=== PATIENT | male | born 1965 | race Caucasian/White ===

== ENCOUNTER → 2017-05-06 | Outpatient (CLI) | payer OTHER ==
[~2017-05-06] MED LIST: GADAVIST IV PRN
--- NOTE | 2017-05-06 09:56 | DIAGNOSTIC IMAGING REPORT ---
BRAIN COMBO CLINICAL HISTORY: METASTATIC MELANOMA none COMPARISON STUDY: No previous studies for comparison. TECHNIQUE: Utilizing a 1.5 Nirali magnet and dedicated coil, multiplanar, multiecho imaging of the brain was performed pre and postcontrast administration. IV administration of 9.5 mL of Gadavist contrast was uneventful. FINDINGS: Signal characteristics are unremarkable throughout the cerebellar as well as cerebral hemispheres. The ventricular system is midline. Sella and parasellar regions are unremarkable. No abnormal postcontrast enhancement. Internal auditory canals are symmetric. IMPRESSION: Normal study. The above report was generated using voice recognition software. It may contain grammatical, syntax or spelling errors. Electronically signed by: Med Sy M.D. 05/06/2017 9:55 AM Dictated Date/Time: 05/06/2017 9:49 AM
== END | disposition home or self-care (01) ==
LOC: C.MRIBC 08:08
PROVIDERS: ATTEND Surgery Surgical Oncology
DX: C43.9 Malignant melanoma of skin, unspecified (principal)

== ENCOUNTER → 2017-05-17 | Outpatient (CLI) | payer OTHER ==
--- NOTE | 2017-05-17 13:20 | DIAGNOSTIC IMAGING REPORT ---
PET/CT HISTORY: C43.9 MALIGNANT MELANOMA OF THE SKIN TECHNIQUE: PET/CT was performed from the base of the skull through the pelvis following the intravenous administration of 14.3 mCi of F18-FDG. Non-contrast CT imaging was performed over the same range without breath-hold for attenuation correction of PET images and anatomic correlation, but not for primary interpretation as it is not of standard diagnostic quality. CT DOSE: COMPARISON: FINDINGS: HEAD AND NECK: Symmetric FDG uptake within the brain. Cervical lymph nodes measure subcentimeter in short axis diameter and demonstrate minimal FDG uptake with SUV max is less than 2. Dominant lymph node on the left measures 7 mm in short axis diameter with an SUV max of 1.8. CHEST: A 4 mm nodule within the right middle lobe in . This is too small to characterize. Otherwise, no suspicious or FDG avid pole nodules identified. No pleural effusions. No pneumothorax. Subcentimeter right paratracheal lymph node also demonstrates an SUV max of 1.8. This lymph node measures 5 mm in short axis diameter. No FDG avid or enlarged hilar or axillary lymph nodes. ABDOMEN/PELVIS: Below the diaphragm, tracer is distributed physiologically in the gastrointestinal and genitourinary tracts. No FDG avid hepatic or splenic lesions. Normal adrenal glands. Bilateral peripelvic renal cysts. Colonic diverticulosis. Within the subcutaneous fat of the right lower quadrant there is a 12.6 x 3.7 cm subcutaneous fluid collection. This demonstrates overlying skin thickening and mild fast rating within the anterior subcutaneous fat. The fasting within the subcutaneous fat demonstrates mild FDG uptake with an SUV max of 2.6. There is a second smaller fluid collection within the right inguinal subcutaneous fat which measures 3 cm with surrounding soft tissue/fat stranding. This surrounding soft tissue thickening/fat stranding also demonstrates mild FDG uptake with an SUV max of 2.6. No FDG avid or enlarged inguinal lymph nodes. There or single lateral external iliac lymph node which measures 8 mm in short axis diameter. These demonstrate minimal FDG uptake with an SUV max of 1.7. MUSCULOSKELETAL/lower extremities: There is no FDG-avid or destructive bone lesion. IMPRESSION: 1. There are few scattered lymph node seen within the neck, chest, and pelvis which demonstrate minimal FDG uptake. These all measure subcentimeter in short axis diameter and therefore unlikely to represent metastatic disease at this time. However, follow is recommended to ensure stability/resolution of these findings. 2. Right lower quadrant and right inguinal subcutaneous fluid collections with mild surrounding soft tissue thickening/fat stranding. The surrounding soft tissue thickening/fat stranding demonstrates mild FDG uptake. Therefore, these findings favor postoperative seromas with surrounding postoperative change at this time. However, a follow-up is recommended to ensure stability/resolution of these findings and to exclude the less likely possibility of residual disease. 3. A 4 indeterminate pulmonary nodule within the right middle lobe which is likely benign. Electronically signed by: Norman Weinstein M.D. 05/17/2017 1:18 PM Dictated Date/Time: 05/17/2017 1:00 PM
== END | disposition home or self-care (01) ==
LOC: C.PET 06:46
PROVIDERS: ATTEND Surgery Surgical Oncology
DX: C43.9 Malignant melanoma of skin, unspecified (principal)

== ENCOUNTER 2017-06-17 08:32 | Inpatient (IN) | payer OTHER ==
[~2017-06-17] VITALS: Ht 177.8 cm; Wt 102.1 kg
[2017-06-17] VITALS (7 sets, daily range): BP systolic 128–170; BP diastolic 81–88; PULSE 69–96; TEMP 36.9–37.7; O2SAT 95–98; Ht 177.8 cm; Wt 102.1 kg
[2017-06-17] MEDS ORDERED: VANCOMYCIN CONSULT ACTIVE PRN ×2 (09:15→12:00)
[2017-06-17] MEDS ORDERED: CEFTRIAXONE SOD INJ 1 GM ADDVIAL IV STA (09:15)
[2017-06-17] MEDS ORDERED: SODIUM CHLORIDE 0.9% 1000ML 1,000 ML IV STA (09:15)
[2017-06-17] MEDS ORDERED: VANCOMYCIN INJ 2,500 MG in SODIUM CHLORIDE 0.9% 500ML 500 ML IV STA (09:15)
[2017-06-17] MEDS ORDERED: SODIUM CHLORIDE 0.9% 500ML 500 ML IV STA (09:15)
--- NOTE | 2017-06-17 09:19 | EMERGENCY ROOM VISIT NOTE ---
History Report prepared by Beronica: Lola Contreras Under the Supervision of: Dr. Adina Melton M.D. First contact with patient: 08:53 Chief Complaint: SWELLING TO EXTREMITY Stated Complaint: SWELLOEN LEG, RED, WARM, PUS DRAINGING OUT OF TUBE History of Present Illness The patient is a 51 year old male who presents to the Emergency Room with complaints of sudden swelling to his right leg beginning yesterday. The patient reports that he has melanoma and had surgeries on April 21 and June 07 to take out lymph nodes and that he had a tube in his leg placed. He reports that last week the tube stopped draining, but states that now the tube is draining again and that the drainage has pus. He also reports that his right leg has been red and swollen. He reports having a low grade fever last night. The patient reports that he has also been coughing, but that he has been on a while. He states that he is not currently on antibiotics and that he has never been on antibiotics since the surgery. The patient states that he is unsure if he needs chemotherapy yet. Source of History: patient Onset: yesterday Position: leg (right) Quality: other (swelling ) Timing: other (sudden ) Associated Symptoms: + fevers, + cough Review of Systems See HPI for pertinent positives & negatives. A total of 10 systems reviewed and were otherwise negative. Past Medical & Surgical Medical Problems: (1) Leukocytosis (2) Post op infection (3) Sepsis (4) Wound abscess Family History No pertinent family history stated. Social History Smoking Status: Never Smoker Marital Status: Housing Status: lives with family Occupation Status: employed Current/Historical Medications Scheduled Acetaminophen Tab (Tylenol), 650 MG PO UD Amlodipine (Norvasc), 10 MG PO HS Atorvastatin (Lipitor), 40 MG PO HS Enoxaparin (Lovenox), 40 MG SQ DAILY Nystatin (Nystatin Suspension), 5 ML PO QID Ranitidine Hcl (Zantac), 150 MG PO BID Allergies Coded Allergies: BEE STING (Unverified Allergy, Intermediate, SHORTNESS OF BREATH/SWELL, ) Oxycodone (Unverified Allergy, Mild, DOSEN'T TOLERATE, 06/17/17) Physical Exam Vital Signs Date Time Temp Pulse Resp B/P (MAP) Pulse Ox O2 Delivery O2 Flow Rate FiO2 06/17/17 11:50 37.4 87 16 153/102 95 Room Air 06/17/17 11:00 94 20 165/93 96 Room Air 06/17/17 09:47 104 06/17/17 08:37 37.2 122 20 154/98 97 Room Air Physical Exam Vital signs reviewed. General: Well-appearing male, some discomfort. HEENT: No scleral icterus, PERRLA, neck supple. Atraumatic. Cardiovascular: Regular rate and rhythm, no extra sounds. Pulmonary: Clear to auscultation bilaterally, normal work of breathing. Abdomen: Soft, nontender, nondistended, positive bowel sounds. Musculoskeletal: Atraumatic, no peripheral edema. See skin changes below. Neurologic: Patient awake alert and oriented x 3, full strength in all 4 extremities. Cranial nerves 2 through 12 grossly intact. Skin: Warm, dry. Drainage around ENRIQUE in L inguinal region cultured. Large well healing incision to right inguinal region with a ENRIQUE drain. Surrounding erythema to the incision. Purulent discharge at ENRIQUE site. Some swelling noted to the right thigh without significant edema distally. Genitals are not affected. Medical Decision & Procedures ER Provider Diagnostic Interpretation: Radiology results as stated below per my review and radiologist interpretation: ULTRASOUND R VENOUS DOPP LOWER EXT UNILAT CLINICAL HISTORY: Right leg swelling status post melanoma resection. COMPARISON STUDY: No previous studies for comparison. FINDINGS: The study was limited from a technical standpoint. The patient has a right thigh incision with an overlying drain. Compression of the common femoral superficial femoral vein could not be performed. There was normal color-flow within the common femoral superficial femoral veins. There is no popliteal vein thrombus. There is normal color-flow the proximal trifurcation veins of the calf. IMPRESSION: Technically limited study. No evidence of right lower extremity DVT. Electronically signed by: Rakesh Palacios M.D. 06/17/2017 10:34 AM Dictated Date/Time: 06/17/2017 10:30 AM RIGHT THIGH ULTRASONOGRAPHY CLINICAL HISTORY: History of melanoma resection. Right thigh swelling. Possible abscess. COMPARISON STUDY: No previous studies for comparison. FINDINGS: There is a right thigh incision with a surgical drain present. There is superficial soft tissue edema. Adjacent to the tube incision is a complex fluid collection which is avascular. This measures 49 x 47 x 20 mm. This could represent a postsurgical hematoma, abscess, or seroma. IMPRESSION: 49 x 47 x 20 mm mildly complex fluid collection, located in deep to the incision and adjacent to the surgical drain. It is not possible ultrasonographically to determine whether this is infected. Electronically signed by: Rakesh Palacios M.D. 06/17/2017 10:37 AM Dictated Date/Time: 06/17/2017 10:34 AM Laboratory Results Test 06/17/17 08:55 06/17/17 09:05 Prothrombin Time 9.9 SECONDS (9.0-12.0) Prothromb Time International Ratio 0.9 (0.9-1.1) Activated Partial Thromboplast Time 29.8 SECONDS (21.0-31.0) Partial Thromboplastin Ratio 1.1 Bedside Lactic Acid Venous 2.27 mmol/L (0.90-1.70) Laboratory results per my review. Medications Administered Medications (Trade) Dose Ordered Sig/Sage Route Start Time Stop Time Status Last Admin Dose Admin Sodium Chloride 500 ml @ 999 mls/hr Q31M STAT IV 06/17/17 09:15 06/17/17 09:45 DC 06/17/17 09:15 999 MLS/HR Sodium Chloride 1,000 ml @ 125 mls/hr Q8H STAT IV 06/17/17 09:15 06/17/17 13:17 DC 06/17/17 09:44 125 MLS/HR Vancomycin HCl 2500 mg/Sodium Chloride 550 ml @ 200 mls/hr ONE STAT IV 06/17/17 09:15 06/17/17 11:59 DC 06/17/17 09:43 200 MLS/HR Ceftriaxone Sodium (Rocephin Inj) 1 gm NOW STAT IV 06/17/17 09:15 06/17/17 09:20 DC 06/17/17 09:41 1 GM ECG Indication: weakness Rate (beats per minute): 109 Rhythm: sinus tachycardia Findings: other (nonspecific ST-change, poor baseline quality for interpretation) Change: Patient's Electrocardiogram interpreted by nd ED Course 09: Past medical records reviewed. The patient was evaluated in room B9. A complete history and physical examination was performed. 0915: Ordered Rocephin Inj 1 gm UV, Vancomycin HCl 2,500 mg/Sodium Chloride 550 ml @ 200 mls/hr IV, Sodium Chloride 1,000 ml @ 125 mls/hr IV, Sodium Chloride 500 ml @ 999 mls/hr IV. 1115: I reviewed the patient's case with Dr. Ramos. He will evaluate the patient for further management. 1125: Upon reevaluation, the patient is resting comfortably. I discussed laboratory and radiographic results with him. He verbalized agreement of the treatment plan. The patient will be evaluated for further management and care. Medical Decision Differential diagnosis: Etiologies such as cellulitis, abscess, MRSA infection, DVT, necrotizing fasciitis, dermatitis, drug eruption, post operative wound infection, as well as others were entertained. This pt was evaluated and appeared to be in no distress. He is noted to be tachycardic and hypertensive. He is afebrile, but has taken antipyretics. IV access was obtained and lab work was drawn. Pt was cultured both at the drainage site and blood. IV vancomycin and ceftriaxone were initiated. US RLE was performed, no DVT but there is a notable fluid collection. WBC is 19. [place] was [place] [facility] [place]. She has requested a drain be placed in the wound. Pt was d/w Dr Soto in [facility] who agrees to evaluate. Pt was happy with plan to stay at [facility] for now as he did not want transfer. He will be evaluted by [facility] hospitalist service for further management. Medication Reconcilliation Current Medication List: was personally reviewed by me Blood Pressure Screening Patient's blood pressure: Elevated blood pressure will be monitored by hospitalist Consults Time Called: 1030 Consulting Physician: Dr. Ramos- IdYashira WhitleyLacon Returned Call: [phone] I reviewed the patient's case with Dr. Ramos. He will evaluate the patient for further management. Impression Primary Impression: Cellulitis of right lower extremity Additional Impressions: Fluid collection at surgical site SIRS (systemic inflammatory response syndrome) Scribe Attestation The scribe's documentation has been prepared under my direction and personally reviewed by me in its entirety. I confirm that the note above accurately reflects all work, treatment, procedures, and medical decision making performed by me. Departure Information Dispostion Being Evaluated By Hospitalist Referrals Jerome Hurley D.O. (PCP) Patient Instructions My [facility] Problem Qualifiers
[2017-06-17 09:49] LABS: BASO % 0.1 %; BASO ABS # 0.01 K/uL (0-0.2); EOS % 0.1 %; EOS ABS # 0.01 K/uL (0-0.5); HEMATOCRIT 41.9 % (42-52); HEMOGLOBIN 14.9 g/dL (14.0-18.0); IG# 0.08 K/uL (0.00-0.02); LYMPH % 6.5 %; LYMPH ABS # 1.26 K/uL (1.2-3.4); MEAN CELL VOLUME 90.5 fL (80-100); MEAN CORPUSCULAR HEMOGLOBIN 32.2 pg (25-34); MEAN CORPUSCULAR HGB CONC 35.6 g/dl (32-36); MEAN PLATELET VOLUME 10.3 fL (7.4-10.4); MONO % 5.7 %; MONO ABS # 1.11 K/uL (0.11-0.59); NEUT % 87.2 %; NEUT ABS # 16.97 K/uL (1.4-6.5); PLATELET COUNT 305 K/uL (130-400); RED CELL DISTRIBUTION WIDTH CV 14.1 % (11.5-14.5); RED CELL DISTRIBUTION WIDTH SD 46.5 fL (36.4-46.3); WHITE BLOOD COUNT 19.44 K/uL (4.8-10.8)
[2017-06-17 09:57] LABS: INR 0.9 (0.9-1.1); PTT PATIENT 29.8 SECONDS (21.0-31.0)
[2017-06-17 10:08] LABS: ALBUMIN 2.9 gm/dl (3.4-5.0); CALCIUM 8.9 mg/dl (8.5-10.1); CREATININE 1.17 mg/dl (0.60-1.40); POTASSIUM 3.4 mmol/L (3.5-5.1)
[2017-06-17 10:11] LABS: TOTAL PROTEIN 7.7 gm/dl (6.4-8.2)
--- NOTE | 2017-06-17 10:36 | DIAGNOSTIC IMAGING REPORT ---
ULTRASOUND R VENOUS DOPP LOWER EXT UNILAT CLINICAL HISTORY: Right leg swelling status post melanoma resection. COMPARISON STUDY: No previous studies for comparison. FINDINGS: The study was limited from a technical standpoint. The patient has a right thigh incision with an overlying drain. Compression of the common femoral superficial femoral vein could not be performed. There was normal color-flow within the common femoral superficial femoral veins. There is no popliteal vein thrombus. There is normal color-flow the proximal trifurcation veins of the calf. IMPRESSION: Technically limited study. No evidence of right lower extremity DVT. Electronically signed by: Rakesh Palacios M.D. 06/17/2017 10:34 AM Dictated Date/Time: 06/17/2017 10:30 AM
--- NOTE | 2017-06-17 10:38 | DIAGNOSTIC IMAGING REPORT ---
RIGHT THIGH ULTRASONOGRAPHY CLINICAL HISTORY: History of melanoma resection. Right thigh swelling. Possible abscess. COMPARISON STUDY: No previous studies for comparison. FINDINGS: There is a right thigh incision with a surgical drain present. There is superficial soft tissue edema. Adjacent to the tube incision is a complex fluid collection which is avascular. This measures 49 x 47 x 20 mm. This could represent a postsurgical hematoma, abscess, or seroma. IMPRESSION: 49 x 47 x 20 mm mildly complex fluid collection, located in deep to the incision and adjacent to the surgical drain. It is not possible ultrasonographically to determine whether this is infected. Electronically signed by: Rakesh Palacios M.D. 06/17/2017 10:37 AM Dictated Date/Time: 06/17/2017 10:34 AM
[2017-06-17] MEDS ORDERED: ACET-1693 PO (10:54)
[2017-06-17] MEDS ORDERED: RANI150T3 PO (10:54)
[2017-06-17] MEDS ORDERED: AMLO-114 PO (10:56)
[2017-06-17] MEDS ORDERED: ATOR-24 PO (10:56)
[2017-06-17] MEDS ORDERED: NYSS/ PO (10:56)
[2017-06-17] MEDS ORDERED: ENOX40IN SQ (10:59)
[2017-06-17] MEDS ORDERED: POTASSIUM CHLORIDE 10 MEQ TABCR PO SCH (11:58)
[2017-06-17] MEDS ORDERED: ACETAMINOPHEN 325 MG TAB PO PRN (12:00)
[2017-06-17] MEDS ORDERED: PIPERACILL/TAZOBAC CONSULT ACTIVE PRN (12:00)
[2017-06-17] MEDS ORDERED: PIPERACILL/TAZOBAC IV 3.375 GM in DEXTROSE 5% 100ML IV STA (13:27)
--- NOTE | 2017-06-17 13:34 | History and Physical ---
History & Physical Date & Time of Service: Jun 17, 2017 at 13:11 Chief Complaint: Swelloen Leg, Red, Warm, Pus Drainging Out Of Tube Primary Care Physician: Jerome Hurley D.O. 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 He and his family report that he was healthy earlier this year but noticed an "ugly" looking spot on his right lower abdomen around his belt line. The lesion was larger than a pencil eraser, dark brown/black discoloration. He was sent to see a surgeon at [place]. A wide excisional biopsy was performed in March 2017 and pathology showed melanoma. Follow up PET scan showed high levels of activity in the right inguinal nodes. There were some small nodes in the chest and neck but minimal activity, felt to not be metastatic disease. MRI of the brain was negative for metastatic lesions. On 06/07/17 he had an extensive surgery in the right inguinal region to excise lymph nodes. A ENRIQUE drain was placed at the inferior aspect of the incision. The patient was discharged to home. He did well for several days, no pain, no fever, the ENRIQUE was draining well. 3 days ago he noticed that the drain stopped draining and his right leg was swollen. He developed some low grade fevers and his appetite was diminished. The next day the drain started draining again, more purulent material and there was some purulent drainage around the drain at the skin. He called his surgeon, they instructed him to go to the ED. He lives in [facility] so he came to [facility]. Here in the ED his WBC is 19k with a left shift and an US of the right groin shows a 49 x 47 x 20 mm mildly complex fluid collection, located in deep to the incision and adjacent to the surgical drain. The ED physician spoke with the radiologist consumer safety officer and they felt that they could place a drain under US guidance. She also spoke with the surgeon at [place] and they requested a drain be placed and they could see the patient in the clinic. The patient and his family would like to avoid going to [place] if possible. We were asked to evaluate for admission. 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[employer]) Allergies Coded Allergies: BEE STING (Unverified Allergy, Intermediate, SHORTNESS OF BREATH/SWELL, ) Oxycodone (Unverified Allergy, Mild, DOSEN'T TOLERATE, 06/17/17) Home Medications Scheduled Acetaminophen Tab (Tylenol), 650 MG PO UD Amlodipine (Norvasc), 10 MG PO HS Atorvastatin (Lipitor), 40 MG PO HS Enoxaparin (Lovenox), 40 MG SQ DAILY Nystatin (Nystatin Suspension), 5 ML PO QID Ranitidine Hcl (Zantac), 150 MG PO BID Review of Systems Constitutional: + fever, + chills, + sweats, No weight loss, No weakness, No fatigue Eyes: No worsening of vision, No eye pain, No redness, No discharge, No diplopia, No problem reported Respiratory: No cough, No sputum, No wheezing, No shortness of breath, No dyspnea on exertion, No dyspnea at rest, No hemoptysis, No problem reported Cardiovascular: No chest pain, No orthopnea, No PND, No edema, No claudication , No palpitations, No problem reported Abdomen: + problem reported (poor appetite), No pain, No nausea, No vomiting, No diarrhea, No constipation, No GI bleeding Musculoskeletal: No joint pain, No muscle pain, No swelling, No calf pain, No problem reported Genitourinary - Male: No hematuria, No dysuria, No urinary frequency, No urinary urgency Neurologic: No memory loss, No paralysis, No weakness, No numbness/tingling, No vertigo, No balance problems, No problem reported Psychiatric: No depression symptoms, No anhedonism, No anxiety, No insomnia, No substance abuse, No problem reported Endocrine: No fatigue, No excessive thirst, No excessive urination, No problem reported Hematologic / Lymphatic: + swollen lymph nodes (right groin), No abnormal bleeding/bruising, No clotting problems, No night sweats, No problem reported Integumentary: + problem reported (right groin swollen, drainage around ENRIQUE site ), No rash, No itch, No new/changing skin lesions, No color change, No bleeding Allergic / Immunologic: No environmental allergies, No seasonal allergies, No pet sensitivities, No food allergies, No hives, No frequent infections, No poor healing, No prolonged convalescence, No problem reported Physical Exam Vital Signs Date Time Temp Pulse Resp B/P (MAP) Pulse Ox O2 Delivery O2 Flow Rate FiO2 06/17/17 12:40 95 16 134/107 97 Room Air 06/17/17 12:00 95 Room Air 06/17/17 11:50 37.4 87 16 153/102 95 Room Air 06/17/17 11:00 94 20 165/93 96 Room Air 06/17/17 09:47 104 06/17/17 08:37 37.2 122 20 154/98 97 Room Air General Appearance: no apparent distress, + obese Head: normocephalic, atraumatic Eyes: normal inspection, EOMI, sclerae normal ENT: normal ENT inspection, hearing grossly normal, pharynx normal Neck: supple, no adenopathy, no JVD, trachea midline Respiratory/Chest: chest non-tender, lungs clear, normal breath sounds, no respiratory distress, no accessory muscle use Cardiovascular: regular rate, rhythm, no edema, no gallop, no JVD, no murmur, normal peripheral pulses Abdomen/GI: normal bowel sounds, non tender, soft, no organomegaly Back: normal inspection, no CVA tenderness, no muscle spasm, normal range of motion Extremities/Musculoskelatal: normal inspection, no calf tenderness, normal capillary refill, no pedal edema, normal range of motion Neurologic/Psych: staff toxicologist II-XII nml as tested, no motor/sensory deficits, alert, normal mood/affect, normal reflexes, oriented x 3 Skin: normal color, warm/dry, no rash, + pertinent finding (right inguinal incision, wound is clean, well approximated, no signs of cellulitis, non-tender to palpation, purulent drainage around ENRIQUE drain) Lymphatic: no adenopathy Diagnostics Laboratory Results Results Past 24 Hours Test 06/17/17 08:55 06/17/17 09:05 Range/Units White Blood Count 19.44 4.8-10.8 K/uL Red Blood Count 4.63 4.7-6.1 M/uL Hemoglobin 14.9 14.0-18.0 g/dL Hematocrit 41.9 42-52 % Mean Corpuscular Volume 90.5 80-100 fL Mean Corpuscular Hemoglobin 32.2 25-34 pg Mean Corpuscular Hemoglobin Concent 35.6 32-36 g/dl Platelet Count 305 130-400 K/uL Mean Platelet Volume 10.3 7.4-10.4 fL Neutrophils (%) (Auto) 87.2 % Lymphocytes (%) (Auto) 6.5 % Monocytes (%) (Auto) 5.7 % Eosinophils (%) (Auto) 0.1 % Basophils (%) (Auto) 0.1 % Neutrophils # (Auto) 16.97 1.4-6.5 K/uL Lymphocytes # (Auto) 1.26 1.2-3.4 K/uL Monocytes # (Auto) 1.11 0.11-0.59 K/uL Eosinophils # (Auto) 0.01 0-0.5 K/uL Basophils # (Auto) 0.01 0-0.2 K/uL RDW Standard Deviation 46.5 36.4-46.3 fL RDW Coefficient of Variation 14.1 11.5-14.5 % Immature Granulocyte % (Auto) 0.4 % Immature Granulocyte # (Auto) 0.08 0.00-0.02 K/uL Prothrombin Time 9.9 9.0-12.0 SECONDS Prothromb Time International Ratio 0.9 0.9-1.1 Activated Partial Thromboplast Time 29.8 21.0-31.0 SECONDS Partial Thromboplastin Ratio 1.1 Sodium Level 136 136-145 mmol/L Potassium Level 3.4 3.5-5.1 mmol/L Chloride Level 103 98-107 mmol/L Carbon Dioxide Level 24 21-32 mmol/L Anion Gap 9.0 3-11 mmol/L Blood Urea Nitrogen 13 7-18 mg/dl Creatinine 1.17 0.60-1.40 mg/dl Est Creatinine Clear Calc Drug Dose 87.4 ml/min Estimated GFR () 82.0 Estimated GFR (Non- 70.8 BUN/Creatinine Ratio 10.8 10-20 Random Glucose 219 70-99 mg/dl Calcium Level 8.9 8.5-10.1 mg/dl Total Bilirubin 1.5 0.2-1 mg/dl Direct Bilirubin 0.3 0-0.2 mg/dl Aspartate Amino Transf (AST/SGOT) 107 15-37 U/L Alanine Aminotransferase (ALT/SGPT) 335 12-78 U/L Alkaline Phosphatase 362 45-117 U/L Total Protein 7.7 6.4-8.2 gm/dl Albumin 2.9 3.4-5.0 gm/dl Bedside Lactic Acid Venous 2.27 0.90-1.70 mmol/L Microbiology Results 06/17/17 Blood Culture, Received Pending 06/17/17 Blood Culture, Received Pending 06/17/17 Gram Stain, Received Pending 06/17/17 Wound Culture, Received Pending Diagnostic Radiology US Right LE: negative for DVT US extremity: IMPRESSION: 49 x 47 x 20 mm mildly complex fluid collection, located in deep to the incision and adjacent to the surgical drain. It is not possible ultrasonographically to determine whether this is infected Impression Assessment and Plan 51 yo male with metastatic melanoma, recent right inguinal excisional surgery, now with what appears to be a right inguinal abscess - Right inguinal abscess with sepsis: admit to tele Vancomycin and Zosyn initially, obtain cultures from drain, consult ID consult radiology for US guided drain placement, obtain cultures NSS at 100cc/hr superficial wound cultures and blood cultures drawn in the ED repeat CBC and BMP tomorrow AM - Metastatic melanoma: discovered in February 2017 s/p abdominal skin excisional biopsy in March s/p right inguinal excision in May 2017 PET scan only showed right inguinal involvement MRI brain was normal patient has not undergone any chemotherapy yet - HTN: continue Norvasc - Dyslipidemia: continue statin DVT prophylaxis: hold on Lovenox for now with potential drain placement of note, he takes Lovenox at home, last dose was 6pm on 06/16/17 Level 1 Level of Care Telemetry Advanced Directives Existing Living Will: No Existing Power of Clinical Documentation Clerk: No Resuscitation Status FULL RESUSCITATION VTE Prophylaxis VTE Risk Assessment Done? Y/N: Yes Risk Level: High Given or contraindicated: Enoxaparin (Lovenox)SQ (resume after drain placed) Additional Copies To Jerome Hurley D.O.
--- NOTE | 2017-06-17 13:54 | Pharmacy Progress Note ---
Pharmacy Abx Initial Consult Date of Service Jun 17, 2017. Pharmacy Dosing Scope Date of Consult: 06/17/17 Consultation requested by: Dr. Ramos Pharmacy is consulted to initiate Vanco/Zosyn IV/PO dosing therapy, order appropriate labs and adjust drug dose/frequency. Subjective The patient is a 51 year old male admitted on Jun 17, 2017 at 11:57. Objective Height (Feet): 5 Height (Inches): 10.00 Weight (Kilograms): 102.100 Vital Signs (Past 12Hrs) Vital Signs Past 12 Hours Date Time Temp Pulse Resp B/P (MAP) Pulse Ox O2 Delivery O2 Flow Rate FiO2 06/17/17 13:24 37.3 96 16 170/83 (112) 98 Room Air 06/17/17 12:40 95 16 134/107 97 Room Air 06/17/17 12:00 95 Room Air 06/17/17 11:50 37.4 87 16 153/102 95 Room Air 06/17/17 11:00 94 20 165/93 96 Room Air 06/17/17 09:47 104 06/17/17 08:37 37.2 122 20 154/98 97 Room Air Lab Results (24Hrs) Laboratory Tests (24 Hours) Test 06/17/17 08:55 White Blood Count 19.44 K/uL (4.8-10.8) H Red Blood Count 4.63 M/uL (4.7-6.1) L Hemoglobin 14.9 g/dL (14.0-18.0) Hematocrit 41.9 % (42-52) L Mean Corpuscular Volume 90.5 fL (80-100) Mean Corpuscular Hemoglobin 32.2 pg (25-34) Mean Corpuscular Hemoglobin Concent 35.6 g/dl (32-36) Platelet Count 305 K/uL (130-400) Mean Platelet Volume 10.3 fL (7.4-10.4) Neutrophils (%) (Auto) 87.2 % Lymphocytes (%) (Auto) 6.5 % Monocytes (%) (Auto) 5.7 % Eosinophils (%) (Auto) 0.1 % Basophils (%) (Auto) 0.1 % Neutrophils # (Auto) 16.97 K/uL (1.4-6.5) H Lymphocytes # (Auto) 1.26 K/uL (1.2-3.4) Monocytes # (Auto) 1.11 K/uL (0.11-0.59) H Eosinophils # (Auto) 0.01 K/uL (0-0.5) Basophils # (Auto) 0.01 K/uL (0-0.2) Micro Results Date/Time Source Procedure Growth Status 06/17/17 09:35 Blood Blood Culture Pending Received 06/17/17 09:28 Blood Blood Culture Pending Received 06/17/17 09:20 Drainage - Surface Thigh , Right Gram Stain Pending Received 06/17/17 09:20 Drainage - Surface Thigh , Right Wound Culture Pending Received Risk Factors for Resistance * Hospitalization for 48 hours or more within the past 90 days Assessment & Plan Assessment Pt is a 51yo M who is s/p lymph node resection from 06/07/17. A ENRIQUE drain was placed and he was sent home w/o antibx. 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 He was instructed to present to the ED. At this juncture he is afebrile, experiencing leukocytosis with a left shift. qSOFA score: 0. Nil AMS, SBP>/=100mmHg, RR WNL. BCx2 and wounding culture pending. He is being treated empirically with Vanco/Zosyn for cellulitis , unsure if there is presence of an abscess. Plan Vancomycin: * Vanco 2500mg (24.5mg/kg) X1 given in the ED to achieve a peak ~35mcg/mL * Then subsequent Vancomycin 1500mg (14.7mg/kg) q10 * Trough goal until C/s's & MOY result: 15-20mcg/mL * Trough ordered for 06/18/17 @ 2330 Zosyn: * Zosyn 3.375g IV X1 to quickly bolus Mr. Norton * Then EI Zosyn 3.375g q8, appropriate for eCrCl>20cc/min, clinical status Pharmacy will continue to follow and will adjust dose/frequency as necessary. Thank you.
[2017-06-17] MEDS: SODIUM CHLORIDE 0.9% 1000ML 1,000 ML IV SCH (14:16)
[2017-06-17] MEDS: NYSTATIN SUSP 500,000 U/5 ML UDC PO SCH ×3 (14:16→20:12)
--- NOTE | 2017-06-17 14:34 | Progress Note ---
Progress Note Date of Service Jun 17, 2017. Progress Note ID Consult Dictated #[id number] A/P: 1. R groin abscess 2. Leukocytosis -Continue abx, follow cultures -thank you
--- NOTE | 2017-06-17 14:37 | DIAGNOSTIC IMAGING REPORT ---
RIGHT THIGH ABSCESS DRAINAGE CLINICAL HISTORY: Right thigh fluid collection status post melanoma resection COMPARISON STUDY: Thyroid ultrasound performed earlier in the day FINDINGS: A timeout was performed. The risks the procedure were explained the patient informed consent was obtained. The patient was prepped and draped in sterile fashion. The skin was anesthetized with 1% lidocaine. Under ultrasound guidance, 8 Maltese pigtail catheter was placed into the right medial thigh fluid collection utilizing a trocar technique. The pigtail catheter was advanced and formed into the cavity. 15 cc of greenish fluid was aspirated from the cavity. Post aspiration ultrasound revealed complete aspiration of the cavity. The pigtail catheter was left in place and placed, secured to the skin, and placed on Urosil drainage. The fluid was sent to the laboratory for culture. IMPRESSION: Successful drainage of a right medial thigh abscess utilizing an 8 Maltese pigtail catheter. Electronically signed by: Rakesh Palacios M.D. 06/17/2017 2:35 PM Dictated Date/Time: 06/17/2017 2:31 PM
--- NOTE | 2017-06-17 16:42 | INFECT. DISEASE CONSULTATION ---
DATE OF CONSULTATION: 06/17/2017 HISTORY OF PRESENT ILLNESS: This is a 51-year-old gentleman who was recently diagnosed with metastatic melanoma to the inguinal lymph nodes. He initially had his workup at [facility] and had resection of melanoma. He additionally underwent extensive surgery on the 07 of June with inguinal node removal. He had a ENRIQUE drain placed and he was discharged home. Over the past few days he was having subjective fevers and chills and he noticed increased purulent drainage from around his drain in addition to lower extremity swelling. His family is present at the bedside and states that the drainage had stopped altogether but there is purulent drainage around the drain itself and increasing swelling. For this reason, he presented to the Emergency Room today. He was found to have a white blood cell count of 19,000 and he did undergo ultrasound with a 4.9 x 4.7 x 2.0 cm complex fluid collection consistent with abscess. He was evaluated by surgery and a drain was placed earlier today. I am seeing him in recovery. He currently denies any pain in the area. There is serous fluid in the drain. He denies any fevers or chills since admission to the hospital. He has been afebrile. He does have elevated liver enzymes with an AST of 107 and ALT of 335. Cultures from the blood and wound are pending at this time. He was placed empirically on vancomycin and Zosyn and he appears to be tolerating these well. He is currently eating lunch on my examination. His remaining review of systems is unremarkable. PAST MEDICAL HISTORY: Significant for hypertension, dyslipidemia, GERD, and recent diagnosis of metastatic melanoma. FAMILY HISTORY: Noncontributory. SOCIAL HISTORY: Negative for alcohol use, tobacco use, or drug use. ALLERGIES: OXYCODONE. CURRENT MEDICATIONS: Norvasc, Lipitor, Zantac, Zosyn, vancomycin, nystatin, Tylenol, Zofran, and potassium. PHYSICAL EXAMINATION: VITAL SIGNS: He is afebrile, pulse 96, respiratory rate 16, blood pressure 170/83, oxygen saturation is 98% on room air. GENERAL: He is awake, alert and oriented x3. He is in no acute distress. HEENT: Mucous membranes are moist. Extraocular muscles are intact. HEART: Regular. LUNGS: Clear bilaterally. ABDOMEN: Soft and nondistended. EXTREMTIES: There is no edema. SKIN: Without rash. Drain in the right groin has minimal serosanguineous fluid. LABORATORY STUDIES: CBC again reveals a white blood cell count of 19.4, hemoglobin 14.9, platelets 305. Chemistry panel: Sodium 136, potassium 3.4, chloride 103, bicarbonate 24, BUN 13, creatinine 1.1, glucose 219. Lactic acid was elevated at 2.2. AST is 107, ALT 335. Wound culture from the Emergency Room has moderate gram positive cocci and many neutrophils. Blood cultures are pending. A culture at the time of drain placement is pending as well. Imaging is as above. ASSESSMENT AND PLAN: Right groin abscess, status post inguinal node removal. At this time, he will remain on empiric antibiotics pending the results of wound and blood cultures. His white blood cell count will be trended. We will follow along with you. Thank you for this consultation.
[2017-06-17] MEDS: VANCOMYCIN INJ 1,500 MG in SODIUM CHLORIDE 0.9% 500ML 500 ML IV SCH (18:35)
[2017-06-17] MEDS: ONDANSETRON INJ 2 MG/ML 2 ML VIAL IV PRN (18:45)
[2017-06-17] MEDS: PIPERACILL/TAZOBAC IV 3.375 GM in DEXTROSE 5% 100ML 100 ML IV SCH (20:10)
[2017-06-17] MEDS: RANITIDINE HCL 150 MG TAB PO SCH (20:11)
[2017-06-17] MEDS: ATORVASTATIN 40 MG TAB PO SCH (20:12)
[2017-06-17] MEDS: AMLODIPINE BESYLATE 5 MG TAB PO SCH (20:12)
[2017-06-17] MEDS ORDERED: VANCOMYCIN INJ 1,000 MG in SODIUM CHLORIDE 0.9% 250ML 250 ML IV SCH (21:00)
[2017-06-18] VITALS (8 sets, daily range): BP systolic 128–156; BP diastolic 78–91; PULSE 63–83; TEMP 36.4–37; O2SAT 95–98
[2017-06-18] MEDS: PIPERACILL/TAZOBAC IV 3.375 GM in DEXTROSE 5% 100ML 100 ML IV SCH ×3 (04:35→20:19)
[2017-06-18] MEDS: VANCOMYCIN INJ 1,500 MG in SODIUM CHLORIDE 0.9% 500ML 500 ML IV SCH ×3 (04:35→23:33)
[2017-06-18] MEDS: ONDANSETRON INJ 2 MG/ML 2 ML VIAL IV PRN (04:39)
[2017-06-18] MEDS: RANITIDINE HCL 150 MG TAB PO SCH ×2 (08:01→20:15)
[2017-06-18] MEDS: NYSTATIN SUSP 500,000 U/5 ML UDC PO SCH ×4 (08:02→20:15)
[2017-06-18 08:04] LABS: BASO % 0.2 %; BASO ABS # 0.03 K/uL (0-0.2); EOS % 0.7 %; EOS ABS # 0.09 K/uL (0-0.5); HEMATOCRIT 38.6 % (42-52); HEMOGLOBIN 13.2 g/dL (14.0-18.0); IG# 0.06 K/uL (0.00-0.02); LYMPH ABS # 1.34 K/uL (1.2-3.4); MEAN CELL VOLUME 90.8 fL (80-100); MEAN CORPUSCULAR HEMOGLOBIN 31.1 pg (25-34); MEAN CORPUSCULAR HGB CONC 34.2 g/dl (32-36); MEAN PLATELET VOLUME 9.4 fL (7.4-10.4); MONO % 8.8 %; MONO ABS # 1.18 K/uL (0.11-0.59); NEUT % 79.9 %; NEUT ABS # 10.67 K/uL (1.4-6.5); PLATELET COUNT 279 K/uL (130-400); RED CELL DISTRIBUTION WIDTH CV 14.2 % (11.5-14.5); WHITE BLOOD COUNT 13.37 K/uL (4.8-10.8)
[2017-06-18 08:35] LABS: ALBUMIN 2.3 gm/dl (3.4-5.0); CALCIUM 8.4 mg/dl (8.5-10.1); CREATININE 0.95 mg/dl (0.60-1.40)
[2017-06-18 08:38] LABS: TOTAL PROTEIN 6.7 gm/dl (6.4-8.2)
--- NOTE | 2017-06-18 11:05 | Progress Note ---
Subjective Date of Service: Jun 18, 2017. Subjective Pt evaluation today including: conversation w/ patient, physical exam, chart review, lab review pt seen in followup, tolerating abx. wound culture pending, gpc on gram stain. blood cultures pending. denies pain, drain remains in place. no f/c overnight, slept ok. no n/v/d/abd pain. wbc improved to 13, LFTS improving as well. All remaining ros reviewed and are negative. Problem List Medical Problems: (1) Cellulitis of right lower extremity Status: Acute (2) Fluid collection at surgical site Status: Acute (3) SIRS (systemic inflammatory response syndrome) Status: Acute Objective Vital Signs Date Time Temp Pulse Resp B/P (MAP) Pulse Ox O2 Delivery O2 Flow Rate FiO2 06/18/17 07:41 36.7 69 18 141/78 (99) 98 Room Air 06/18/17 04:12 36.4 63 18 128/82 (97) 98 Room Air 06/18/17 04:00 Room Air 06/17/17 23:59 Room Air 06/17/17 23:34 36.9 69 17 128/82 (97) 96 Room Air 06/17/17 20:00 98 Room Air 06/17/17 19:57 37.1 72 20 132/88 (103) 95 Room Air 06/17/17 16:00 98 Room Air 06/17/17 15:35 37.7 94 20 130/81 (97) 95 Room Air 06/17/17 13:24 37.3 96 16 170/83 (112) 98 Room Air 06/17/17 12:40 95 16 134/107 97 Room Air 06/17/17 12:00 95 Room Air 06/17/17 11:50 37.4 87 16 153/102 95 Room Air Physical Exam General Appearance: WD/WN, no apparent distress Eyes: normal inspection, EOMI Neck: supple Respiratory/Chest: lungs clear, normal breath sounds, no respiratory distress Cardiovascular: regular rate, rhythm, no edema Abdomen: non tender, soft Extremities: non-tender, no pedal edema Neurologic/Psychiatric: alert, oriented x 3 Skin: normal color Comments: right thigh erythema improved. drain in place with serosang drainage. Laboratory Results Item Value Date Time Gram Stain - Final Resulted 06/17/17 0920 Drainage - Surface Thigh , Right Gram Stain - Final Resulted 06/17/17 1400 Abscess Thigh , Right Last 24 Hours Test 06/18/17 07:41 White Blood Count 13.37 K/uL Red Blood Count 4.25 M/uL Hemoglobin 13.2 g/dL Hematocrit 38.6 % Mean Corpuscular Volume 90.8 fL Mean Corpuscular Hemoglobin 31.1 pg Mean Corpuscular Hemoglobin Concent 34.2 g/dl Platelet Count 279 K/uL Mean Platelet Volume 9.4 fL Neutrophils (%) (Auto) 79.9 % Lymphocytes (%) (Auto) 10.0 % Monocytes (%) (Auto) 8.8 % Eosinophils (%) (Auto) 0.7 % Basophils (%) (Auto) 0.2 % Neutrophils # (Auto) 10.67 K/uL Lymphocytes # (Auto) 1.34 K/uL Monocytes # (Auto) 1.18 K/uL Eosinophils # (Auto) 0.09 K/uL Basophils # (Auto) 0.03 K/uL RDW Standard Deviation 47.0 fL RDW Coefficient of Variation 14.2 % Immature Granulocyte % (Auto) 0.4 % Immature Granulocyte # (Auto) 0.06 K/uL Sodium Level 139 mmol/L Potassium Level 4.0 mmol/L Chloride Level 108 mmol/L Carbon Dioxide Level 22 mmol/L Anion Gap 9.0 mmol/L Blood Urea Nitrogen 10 mg/dl Creatinine 0.95 mg/dl Est Creatinine Clear Calc Drug Dose 107.7 ml/min Estimated GFR () 105.5 Estimated GFR (Non- 91.0 BUN/Creatinine Ratio 10.7 Random Glucose 108 mg/dl Calcium Level 8.4 mg/dl Magnesium Level 2.2 mg/dl Total Bilirubin 1.1 mg/dl Direct Bilirubin 0.3 mg/dl Aspartate Amino Transf (AST/SGOT) 51 U/L Alanine Aminotransferase (ALT/SGPT) 197 U/L Alkaline Phosphatase 249 U/L Total Protein 6.7 gm/dl Albumin 2.3 gm/dl Assessment and Plan (1) Post op infection Assessment & Plan: continue abx for now, additional recs based on culture results (2) Leukocytosis Assessment & Plan: improving.
--- NOTE | 2017-06-18 11:37 | Progress Note ---
Subjective Date of Service: Jun 18, 2017. Subjective Pt evaluation today including: conversation w/ patient 51 yo male is feeling well. He denies pain, fever, chills, nausea, vomiting. Problem List Medical Problems: (1) Cellulitis of right lower extremity Status: Acute (2) Fluid collection at surgical site Status: Acute (3) SIRS (systemic inflammatory response syndrome) Status: Acute Review of Systems Constitutional: No fever Eyes: No worsening of vision Respiratory: No cough, No sputum Cardiac: No chest pain, No orthopnea Abdomen: No pain, No nausea Neurologic: No memory loss, No paralysis Psychiatric: No depression symptoms Heme: No abnormal bleeding/bruising All Other Systems: Reviewed and Negative Medications Current Inpatient Medications Medications (Trade) Dose Ordered Sig/Sage Route Start Time Stop Time Status Last Admin Dose Admin Sodium Chloride 1,000 ml @ 100 mls/hr Q10H IV 06/17/17 13:30 07/17/17 13:29 06/18/17 20:14 100 MLS/HR Acetaminophen (Tylenol Tab) 650 mg Q4H PRN PO 06/17/17 12:00 07/17/17 11:59 06/17/17 16:08 650 MG Ondansetron HCl (Zofran Inj) 4 mg Q6H PRN IV 06/17/17 12:00 07/17/17 11:59 06/18/17 04:39 4 MG Piperacillin Sod/ Tazobactam Sod 3.375 gm/Dextrose 115 ml @ 28.75 mls/ hr Q8H IV 06/17/17 20:00 06/27/17 19:59 06/18/17 20:19 28.75 MLS/HR Miscellaneous Information (Consult) 1 ea UD PRN N/A 06/17/17 12:00 07/17/17 11:59 Miscellaneous Information (Consult) 1 ea UD PRN N/A 06/17/17 12:00 07/17/17 11:59 Amlodipine Besylate (Norvasc Tab) 10 mg HS PO 06/17/17 21:00 07/17/17 20:59 06/18/17 20:15 10 MG Atorvastatin Calcium (Lipitor Tab) 40 mg HS PO 06/17/17 21:00 07/17/17 20:59 06/18/17 20:15 40 MG Nystatin (Mycostatin Susp) 5 ml QID PO 06/17/17 13:00 06/27/17 12:59 06/18/17 20:15 5 ML Ranitidine HCl (zANTac TAB) 150 mg BID PO 06/17/17 21:00 07/17/17 20:59 06/18/17 20:15 150 MG Vancomycin HCl 1500 mg/Sodium Chloride 530 ml @ 200 mls/hr Q10H IV 06/17/17 18:00 06/27/17 17:59 06/18/17 14:40 200 MLS/HR Objective Vital Signs Date Time Temp Pulse Resp B/P (MAP) Pulse Ox O2 Delivery O2 Flow Rate FiO2 06/18/17 07:41 36.7 69 18 141/78 (99) 98 Room Air 06/18/17 04:12 36.4 63 18 128/82 (97) 98 Room Air 06/18/17 04:00 Room Air 06/17/17 23:59 Room Air 06/17/17 23:34 36.9 69 17 128/82 (97) 96 Room Air 06/17/17 20:00 98 Room Air 06/17/17 19:57 37.1 72 20 132/88 (103) 95 Room Air 06/17/17 16:00 98 Room Air 06/17/17 15:35 37.7 94 20 130/81 (97) 95 Room Air 06/17/17 13:24 37.3 96 16 170/83 (112) 98 Room Air 06/17/17 12:40 95 16 134/107 97 Room Air 06/17/17 12:00 95 Room Air 06/17/17 11:50 37.4 87 16 153/102 95 Room Air Physical Exam General Appearance: WD/WN, no apparent distress Neck: supple, no adenopathy Respiratory/Chest: chest non-tender, lungs clear, normal breath sounds Cardiovascular: regular rate, rhythm, no edema Abdomen: normal bowel sounds, non tender, soft Extremities: normal range of motion, non-tender, + pertinent finding (erythema of right thigh appears to have decreased. 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 tested, alert, oriented x 3 Skin: normal color Laboratory Results Last 24 Hours Test 06/18/17 07:41 White Blood Count 13.37 K/uL Red Blood Count 4.25 M/uL Hemoglobin 13.2 g/dL Hematocrit 38.6 % Mean Corpuscular Volume 90.8 fL Mean Corpuscular Hemoglobin 31.1 pg Mean Corpuscular Hemoglobin Concent 34.2 g/dl Platelet Count 279 K/uL Mean Platelet Volume 9.4 fL Neutrophils (%) (Auto) 79.9 % Lymphocytes (%) (Auto) 10.0 % Monocytes (%) (Auto) 8.8 % Eosinophils (%) (Auto) 0.7 % Basophils (%) (Auto) 0.2 % Neutrophils # (Auto) 10.67 K/uL Lymphocytes # (Auto) 1.34 K/uL Monocytes # (Auto) 1.18 K/uL Eosinophils # (Auto) 0.09 K/uL Basophils # (Auto) 0.03 K/uL RDW Standard Deviation 47.0 fL RDW Coefficient of Variation 14.2 % Immature Granulocyte % (Auto) 0.4 % Immature Granulocyte # (Auto) 0.06 K/uL Sodium Level 139 mmol/L Potassium Level 4.0 mmol/L Chloride Level 108 mmol/L Carbon Dioxide Level 22 mmol/L Anion Gap 9.0 mmol/L Blood Urea Nitrogen 10 mg/dl Creatinine 0.95 mg/dl Est Creatinine Clear Calc Drug Dose 107.7 ml/min Estimated GFR () 105.5 Estimated GFR (Non- 91.0 BUN/Creatinine Ratio 10.7 Random Glucose 108 mg/dl Calcium Level 8.4 mg/dl Magnesium Level 2.2 mg/dl Total Bilirubin 1.1 mg/dl Direct Bilirubin 0.3 mg/dl Aspartate Amino Transf (AST/SGOT) 51 U/L Alanine Aminotransferase (ALT/SGPT) 197 U/L Alkaline Phosphatase 249 U/L Total Protein 6.7 gm/dl Albumin 2.3 gm/dl Assessment and Plan 51 yo male with metastatic melanoma, recent right inguinal excisional surgery, now with what appears to be a right inguinal abscess - Right inguinal abscess with sepsis: admit to tele Vancomycin and Zosyn initially, obtain cultures from drain, consult ID Cultures are still pending consult radiology for US guided drain placement, obtain cultures Drain was placed. NSS at 100cc/hr will continue empriic antibiotics WBC shows improvement superficial wound cultures and blood cultures drawn in the ED repeat CBC and BMP tomorrow AM - Metastatic melanoma: discovered in February 2017 s/p abdominal skin excisional biopsy in March s/p right inguinal excision in May 2017 PET scan only showed right inguinal involvement MRI brain was normal patient has not undergone any chemotherapy yet - HTN: continue Norvasc - Dyslipidemia: continue statin DVT prophylaxis: hold on Lovenox for now with potential drain placement of note, he takes Lovenox at home, last dose was 6pm on 06/16/17 will downgrade today to med/surg Continued [facility] stay due to: other (uncontrolled infection) Discharge planning: home
[2017-06-18] MEDS: SODIUM CHLORIDE 0.9% 1000ML 1,000 ML IV SCH ×2 (14:51→20:14)
[2017-06-18] MEDS: ATORVASTATIN 40 MG TAB PO SCH (20:15)
[2017-06-18] MEDS: AMLODIPINE BESYLATE 5 MG TAB PO SCH (20:15)
[2017-06-18] MEDS ORDERED: VANCOMYCIN TROUGH ONE (23:30)
[2017-06-19] MEDS: PIPERACILL/TAZOBAC IV 3.375 GM in DEXTROSE 5% 100ML 100 ML IV SCH ×3 (04:07→19:51)
[2017-06-19 04:16] VITALS: BP 133/86; PULSE 60; TEMP 36.6; O2SAT 98
[2017-06-19 07:03] VITALS: BP 130/84; PULSE 64; TEMP 36.8; O2SAT 98
[2017-06-19] MEDS: RANITIDINE HCL 150 MG TAB PO SCH ×2 (07:27→19:51)
[2017-06-19] MEDS: SODIUM CHLORIDE 0.9% 1000ML 1,000 ML IV SCH (07:27)
[2017-06-19] MEDS: NYSTATIN SUSP 500,000 U/5 ML UDC PO SCH ×4 (07:27→19:51)
--- NOTE | 2017-06-19 08:51 | Pharmacy Progress Note ---
Pharmacy Abx Dose Short Note Date of Service Jun 19, 2017. Assessment & Plan Assessment Pt is a 51yo M who is s/p lymph node resection from 06/07/17. A ENRIQUE drain was placed and he was sent home w/o antibx. [employer] Mr. Norton developed fevers and developed purulent drainage from the ENRIQUE site. He was instructed to present to the ED. At this juncture he is afebrile, experiencing leukocytosis with a left shift. qSOFA score: 0. Nil AMS, SBP>/=100mmHg, RR WNL. BCx2 and wounding culture pending. He is being treated empirically with Vanco/Zosyn for cellulitis , and possible right inguinal abscess. Leukocytosis improving, patient is afebrile. Wound cultures positive for group C Beta Strep. ID following Day # 3 of Vancomycin/Zosyn antimicrobial therapy. Plan Vancomycin * Trough level of 13.8 mcg/mL is subtherapeutic, however with BMI above 30 kg/ m2 will continue to accumulate into therapeutic range with ongoing dosing. * Continue dose of Vancomycin 1500 mg IV every 10 hours * Goal trough level for abscess/cellulitis: 15 to 20 mcg/mL * Deferred for 48-72 hours depending on planned longevity of this course and renal function Pharmacy will continue to follow and will adjust dose/frequency as necessary. Thank you.
[2017-06-19] MEDS: VANCOMYCIN INJ 1,500 MG in SODIUM CHLORIDE 0.9% 500ML 500 ML IV SCH ×2 (09:38→19:51)
[2017-06-19 11:32] VITALS: BP 135/86; PULSE 85; TEMP 36.6; O2SAT 99
[2017-06-19] MEDS ORDERED: NURSING VERBAL MED ORDER ONE (15:00)
[2017-06-19 15:38] VITALS: BP 139/87; PULSE 65; TEMP 36.7; O2SAT 97
[2017-06-19] MEDS: ATORVASTATIN 40 MG TAB PO SCH (19:52)
[2017-06-19] MEDS: AMLODIPINE BESYLATE 5 MG TAB PO SCH (19:53)
[2017-06-19 20:07] VITALS: BP 153/90; PULSE 71; TEMP 36.9; O2SAT 98
--- NOTE | 2017-06-19 20:57 | Progress Note ---
Progress Note Date of Service Jun 19, 2017. Progress Note Subjective Pt evaluation today including: conversation w/ patient 51 yo male is feeling well. Pt denies pain, fever, chills, nausea, vomiting. Problem List Medical Problems: (1) Cellulitis of right lower extremity Status: Acute (2) Fluid collection at surgical site Status: Acute (3) SIRS (systemic inflammatory response syndrome) Status: Acute Review of Systems Constitutional: No fever Eyes: No worsening of vision Respiratory: No cough, No sputum Cardiac: No chest pain, No orthopnea Abdomen: No pain, No nausea Neurologic: No memory loss, No paralysis Psychiatric: No depression symptoms Heme: No abnormal bleeding/bruising Physical Exam General Appearance: WD/WN, no apparent distress Neck: supple, no adenopathy Respiratory/Chest: chest non-tender, lungs clear, normal breath sounds Cardiovascular: regular rate, rhythm, no edema Abdomen: normal bowel sounds, non tender, soft Extremities: normal range of motion, non-tender, + pertinent finding (erythema of right thigh appears to have decreased. 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, alert, oriented x 3 Skin: normal color Assessment and Plan 51 yo male with metastatic melanoma, recent right inguinal excisional surgery, now with what appears to be a right inguinal abscess - Right inguinal abscess with sepsis: Vancomycin and Zosyn initially Cultures sensitivity pending Drain placed and draining blood tinged fluid DC NSS at 100cc/hr improvement in erythema and pain will continue empriic antibiotics WBC trending downward\ - Metastatic melanoma: discovered in February 2017 s/p abdominal skin excisional biopsy in March s/p right inguinal excision in May 2017 PET scan only showed right inguinal involvement MRI brain was normal patient has not undergone any chemotherapy yet - HTN: continue Norvasc - Dyslipidemia: continue statin DVT prophylaxis: hold on Lovenox for now with potential drain placement of note, he takes Lovenox at home, last dose was 6pm on 06/16/17 Continued [facility] stay due to: other (uncontrolled infection) D/C home possible Wednesday
[2017-06-19 23:11] VITALS: BP 138/81; PULSE 66; TEMP 36.7; O2SAT 96
[2017-06-20] VITALS (7 sets, daily range): BP systolic 134–153; BP diastolic 80–96; PULSE 61–79; TEMP 36.6–37; O2SAT 96–98
[2017-06-20] MEDS: PIPERACILL/TAZOBAC IV 3.375 GM in DEXTROSE 5% 100ML 100 ML IV SCH ×3 (04:19→20:13)
[2017-06-20] MEDS: VANCOMYCIN INJ 1,500 MG in SODIUM CHLORIDE 0.9% 500ML 500 ML IV SCH ×2 (06:10→15:40)
[2017-06-20] MEDS: NYSTATIN SUSP 500,000 U/5 ML UDC PO SCH ×4 (07:03→20:13)
[2017-06-20] MEDS: RANITIDINE HCL 150 MG TAB PO SCH ×2 (07:03→20:16)
[2017-06-20 10:56] LABS: CREATININE 1.3 mg/dl (0.60-1.40)
--- NOTE | 2017-06-20 11:55 | Progress Note ---
Subjective Date of Service: Jun 20, 2017. Subjective Pt evaluation today including: conversation w/ patient, physical exam, chart review, lab review, review of studies, review of inpatient medication list Pain: none Voiding: no voiding problems Pt is seen and examined by me. pt drain fel off, but original drain is working good, i think there is no need to reinsert another drain at this time. Pt swelling decrease to 90% and right thigh area looking good. Problem List Medical Problems: (1) Cellulitis of right lower extremity Status: Acute (2) Fluid collection at surgical site Status: Acute (3) SIRS (systemic inflammatory response syndrome) Status: Acute Review of Systems All Other Systems: Reviewed and Negative Objective Vital Signs Date Time Temp Pulse Resp B/P (MAP) Pulse Ox O2 Delivery O2 Flow Rate FiO2 06/20/17 11:14 37.0 77 16 137/83 (101) 98 Room Air 06/20/17 09:23 Room Air 06/20/17 07:40 36.7 73 18 144/88 (106) 96 Room Air 06/20/17 04:41 36.6 61 18 148/96 (113) 98 Room Air 06/20/17 01:54 Room Air 06/19/17 23:11 36.7 66 20 138/81 (100) 96 Room Air 06/19/17 21:00 Room Air 06/19/17 20:07 36.9 71 20 153/90 (111) 98 Room Air 06/19/17 15:38 36.7 65 18 139/87 (104) 97 Room Air 06/19/17 15:25 Room Air 06/19/17 14:09 Room Air Physical Exam General Appearance: no apparent distress Eyes: EOMI Neck: supple Respiratory/Chest: chest non-tender, lungs clear, normal breath sounds Cardiovascular: regular rate, rhythm, no murmur Abdomen: soft Neurologic/Psychiatric: 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, no motor/sensory deficits, normal mood/affect, oriented x 3 Skin: no rash Lymphatic: no adenopathy Laboratory Results Last 24 Hours Test 06/20/17 10:17 06/20/17 11:48 Creatinine 1.30 mg/dl Est Creatinine Clear Calc Drug Dose 78.5 ml/min Estimated GFR () 72.2 Estimated GFR (Non- 62.3 Assessment and Plan 51 yo male with metastatic melanoma, recent right inguinal excisional surgery, now with what appears to be a right inguinal abscess - Right inguinal abscess with sepsis: Vancomycin and Zosyn Cultures sensitivity show sensitive to all antibiotics Drain placed and fell out but the original drain is intact and draining just fine. DC NSS at 100cc/hr improvement in erythema and pain will continue empriic antibiotics WBC trending downward repeat wbc in am may go tomorrow with po antibiotics to complete the course. - Metastatic melanoma: discovered in February 2017 s/p abdominal skin excisional biopsy in March s/p right inguinal excision in May 2017 PET scan only showed right inguinal involvement MRI brain was normal patient has not undergone any chemotherapy yet - HTN: continue Norvasc - Dyslipidemia: continue statin DVT prophylaxis: hold on Lovenox for now with potential drain placement of note, he takes Lovenox at home, last dose was 6pm on 06/16/17 Continued [facility] stay due to: other (uncontrolled infection) Discharge planning: home
[2017-06-20 12:06] LABS: BASO % 0.3 %; BASO ABS # 0.04 K/uL (0-0.2); EOS % 0.9 %; EOS ABS # 0.12 K/uL (0-0.5); HEMATOCRIT 42.8 % (42-52); HEMOGLOBIN 14.7 g/dL (14.0-18.0); IG# 0.06 K/uL (0.00-0.02); LYMPH % 10.6 %; LYMPH ABS # 1.35 K/uL (1.2-3.4); MEAN CELL VOLUME 92.2 fL (80-100); MEAN CORPUSCULAR HEMOGLOBIN 31.7 pg (25-34); MEAN CORPUSCULAR HGB CONC 34.3 g/dl (32-36); MEAN PLATELET VOLUME 9.5 fL (7.4-10.4); MONO % 9.2 %; MONO ABS # 1.17 K/uL (0.11-0.59); NEUT % 78.5 %; NEUT ABS # 9.94 K/uL (1.4-6.5); PLATELET COUNT 409 K/uL (130-400); RED CELL DISTRIBUTION WIDTH CV 13.7 % (11.5-14.5); RED CELL DISTRIBUTION WIDTH SD 46.1 fL (36.4-46.3); WHITE BLOOD COUNT 12.68 K/uL (4.8-10.8)
[2017-06-20] MEDS: ATORVASTATIN 40 MG TAB PO SCH (20:16)
[2017-06-20] MEDS: AMLODIPINE BESYLATE 5 MG TAB PO SCH (20:16)
[2017-06-21] MEDS: VANCOMYCIN INJ 1,500 MG in SODIUM CHLORIDE 0.9% 500ML 500 ML IV SCH ×2 (02:05→12:24)
[2017-06-21] MEDS: PIPERACILL/TAZOBAC IV 3.375 GM in DEXTROSE 5% 100ML 100 ML IV SCH ×2 (04:16→12:24)
[2017-06-21 04:47] VITALS: BP 132/87; PULSE 60; TEMP 36.7; O2SAT 97
[2017-06-21 07:53] VITALS: BP 131/84; PULSE 67; TEMP 36.8; O2SAT 98
[2017-06-21 08:00] VITALS: O2SAT 98
[2017-06-21] MEDS: NYSTATIN SUSP 500,000 U/5 ML UDC PO SCH ×2 (09:14→12:23)
[2017-06-21] MEDS: RANITIDINE HCL 150 MG TAB PO SCH (09:14)
--- NOTE | 2017-06-21 10:45 | Progress Note ---
Subjective Date of Service: Jun 21, 2017. Subjective Pt evaluation today including: conversation w/ patient, physical exam, chart review, lab review pt states he is going home today, has plans to follow in [place] with surgery on Wednesday. wound culture with flor sensitive Group C Strep, tolerating abx. afebrile. eating no abd pain no n/v/d. no pain in leg but still some swelling. drain fell out over weekend but original ENRIQUE remains in place, pt states drainage is less and becoming clear. No pain, able to ambulate without difficulty. all remaining ros reviewed and are negative. Problem List Medical Problems: (1) Cellulitis of right lower extremity Status: Acute (2) Fluid collection at surgical site Status: Acute (3) SIRS (systemic inflammatory response syndrome) Status: Acute Objective Vital Signs Date Time Temp Pulse Resp B/P (MAP) Pulse Ox O2 Delivery O2 Flow Rate FiO2 06/21/17 07:53 36.8 67 18 131/84 (100) 98 Room Air 06/21/17 04:47 36.7 60 20 132/87 (102) 97 Room Air 06/21/17 00:00 Room Air 06/20/17 23:12 36.8 65 18 134/80 (98) 97 Room Air 06/20/17 20:15 61 153/82 (105) 06/20/17 20:00 Room Air 06/20/17 19:38 36.7 79 18 137/88 (104) 98 Room Air 06/20/17 15:41 36.6 71 18 149/93 (111) 98 Room Air 06/20/17 15:04 Room Air 06/20/17 11:14 37.0 77 16 137/83 (101) 98 Room Air Physical Exam General Appearance: WD/WN, no apparent distress Eyes: normal inspection, EOMI Neck: supple Respiratory/Chest: lungs clear, normal breath sounds, no respiratory distress Cardiovascular: regular rate, rhythm Abdomen: non tender, soft Extremities: non-tender, no pedal edema Neurologic/Psychiatric: alert, oriented x 3 Skin: normal color Comments: left thigh cellulitis resolved, ENRIQUE drain with min serous fluid. Laboratory Results Item Value Date Time Gram Stain - Final Complete 06/17/17 1400 Abscess Thigh , Right Blood Culture - Preliminary Resulted 06/17/17 0935 Blood NO GROWTH TO DATE. Blood Culture - Preliminary Resulted 06/17/17 0928 Blood NO GROWTH TO DATE. Gram Stain - Final Complete 06/17/17 0920 Drainage - Surface Thigh , Right Assessment and Plan (1) Post op infection Assessment & Plan: can change to augmentin 875mg po bid with food, would give 14 days. Plan to follow in office post d/c and extend abx if needed. ok for d/c from ID standpoint. plan to follow in [place] later this week as well. (2) Leukocytosis Continued [facility] stay due to: other (uncontrolled infection) Discharge planning: home
[2017-06-21 11:52] VITALS: BP 133/83; PULSE 80; TEMP 36.3; O2SAT 97
[2017-06-21] MEDS ORDERED: AMOX1TAB43 PO (15:56)
[2017-06-21] MEDS ORDERED: LCTX OR (15:56)
[2017-06-21 15:57] VITALS: BP 133/83; PULSE 80; TEMP 36.3; O2SAT 97
--- NOTE | 2017-06-21 15:57 | Discharge Instructions ---
Discharge Instructions Date of Service Jun 21, 2017. Admission Reason for Admission: Sepsis, Wound Abscess Discharge Discharge Diagnosis / Problem: lower extrimity abscess Discharge Goals Goal(s): Decrease discomfort Activity Recommendations Activity Limitations: resume your previous activity . Current Hospital Diet Patient's current hospital diet: Regular Diet Discharge Diet Recommended Diet: Regular Diet Pending Studies Studies pending at discharge: no Medical Emergencies . Who to Call and When: Medical Emergencies: If at any time you feel your situation is an emergency, please call 911 immediately. . Non-Emergent Contact Non-Emergency issues call your: Primary Care Provider . . "Provider Documentation" section prepared by Alcides Duque. . VTE Core Measure Inpt VTE Proph given/why not?: Enoxaparin (Lovenox)SQ (resume after drain placed)
[2017-06-21 16:00] VITALS: BP 146/96; PULSE 70; TEMP 36.8; O2SAT 98
[2017-06-21] MEDS ORDERED: AMOXICILLIN/CLAVULANATE TAB 875 MG TAB PO SCH (17:00)
--- NOTE | 2017-06-21 18:28 | Discharge Summary ---
Discharge Summary Date of Service Jun 21, 2017. Discharge Summary Admission Date: Jun 17, 2017 at 11:57 Discharge Date: Jun 21, 2017 Discharge Disposition: Home Principal Diagnosis: right thigh cellulitis/abscess Problems/Secondary Diagnoses: Hypertension Dyslipidemia History of recent melanoma status post excision Medication Reconciliation New Medications: Lactobacillus Acidophilus (Floranex) 1 Tab Tab 2 TAB OR TID for 15 Days Amoxicillin & Pot Clavulanate (Amoxicillin/Clavulanate P) 1 Tab Tab 875 MG PO BIDM for 14 Days, #28 TAB Continued Medications: Acetaminophen Tab (Tylenol) 325 Mg Tab 650 MG PO UD Amlodipine (Norvasc) 10 Mg Tab 10 MG PO HS Atorvastatin (Lipitor) 40 Mg Tab 40 MG PO HS Enoxaparin (Lovenox) 40 Mg/0.4 Ml Inj 40 MG SQ DAILY Nystatin (Nystatin Suspension) 1 Ml Susp 5 ML PO QID Ranitidine Hcl (Zantac) 150 Mg Tab 150 MG PO BID Discharge Exam Review of Systems: Constitutional: No fever, No chills, No sweats, No weight loss, No weakness , No fatigue, No problem reported Eyes: No worsening of vision, No eye pain, No redness, No discharge, No diplopia, No problem reported ENT: No hearing loss, No unusual epistaxis, No nasal symptoms, No sore throat, No tinnitus, No dental problems, No trouble swallowing, No problem reported Respiratory: No cough, No sputum, No wheezing, No shortness of breath, No dyspnea on exertion, No dyspnea at rest, No hemoptysis, No problem reported Cardiovascular: No chest pain, No orthopnea, No PND, No edema, No claudication, No palpitations, No problem reported Abdomen: No pain, No nausea, No vomiting, No diarrhea, No constipation, No GI bleeding, No problem reported Musculoskeletal: No joint pain, No muscle pain, No swelling, No calf pain, No problem reported Genitourinary - Female: No dysuria, No urinary frequency, No urinary urgency , No urinary incontinence, No urinary retention, No hematuria, No dysmenorrhea, No menorrhagia, No metrorrhagia, No rash, No vaginal bleeding, No vaginal discharge, No vaginal itching, No vulvodynia, No , No problem reported Genitourinary - Male: No hematuria, No dysuria, No urinary frequency, No urinary urgency, No urinary hesitancy, No urinary retention, No urinary incontinence, No penile discharge, No lesions, No impotence, No problem reported Neurologic: No memory loss, No paralysis, No weakness, No numbness/tingling , No vertigo, No balance problems, No problem reported Psychiatric: No depression symptoms, No anhedonism, No anxiety, No insomnia , No substance abuse, No problem reported Endocrine: No fatigue, No excessive thirst, No excessive urination, No problem reported Hematologic / Lymphatic: No abnormal bleeding/bruising, No clotting problems , No swollen lymph nodes, No night sweats, No problem reported Integumentary: No rash, No itch, No new/changing skin lesions, No color change, No bleeding, No problem reported Physical Exam: General Appearance: WD/WN, no apparent distress Eyes: normal inspection, EOMI ENT: normal ENT inspection, hearing grossly normal, TMs normal, pharynx normal Neck: supple Respiratory/Chest: chest non-tender, lungs clear, normal breath sounds, no respiratory distress, no accessory muscle use Cardiovascular: regular rate, rhythm, no edema, no gallop, no JVD, no murmur , normal peripheral pulses Abdomen / GI: normal bowel sounds, non tender, soft, no organomegaly, no pulsatile mass Extremities: + pertinent finding (drain in right thigh) Neurologic/Psychiatric: 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 Follow up PET scan showed high levels of activity in the right inguinal nodes. There were some small nodes in the chest and neck but minimal activity, felt to not be metastatic disease. MRI of the brain was negative for metastatic lesions. On 06/07/17 he had an extensive surgery in the right inguinal region to excise lymph nodes. 3 days prior to admission developed fever pain and leukocytosis. Ultrasound revealed 49 x 47 x 20 mm abscess on right groin. Radiologist was consulted status post placement of the tail drainage catheter on 06/17/2079. Culture grew group C Beta Streptococcus penicillin sensitive. Initially was started on vancomycin and Zosyn Consult ID was appreciated. Antibiotics were switched to Augmentin 875 mg by mouth twice a day 14 days patient was with found within acceptable medical stability for discharge today and follow up with [place] in am Total Time Spent: Less than 30 minutes This includes examination of the patient, discharge planning, medication reconciliation, and communication with other providers. Discharge Instructions Please refer to the electronic Patient Visit Report (Discharge Instructions) for additional information.
== END 2017-06-21 16:48 | disposition home or self-care (01) | DRG 862 ==
LOC: C.EDB 08:33 → C.2T 11:57 → ENRESERV 12:14 → C.4E 06-18 13:05
PROVIDERS: ADMIT Internal Medicine; ATTEND Internal Medicine
DX: T81.4XXA Infection following a procedure, initial encounter (principal); A41.9 Sepsis, unspecified organism; L03.115 Cellulitis of right lower limb; A48.8 Other specified bacterial diseases; C43.9 Malignant melanoma of skin, unspecified; I10 Essential (primary) hypertension; K21.9 Gastro-esophageal reflux disease without esophagitis; E78.5 Hyperlipidemia, unspecified; D72.829 Elevated white blood cell count, unspecified